=== PATIENT | female | born 1950 | race Caucasian/White ===

== ENCOUNTER 2019-09-27 10:39 | Day surgery (SDC) | payer MEDICARE, MEDICAID ==
[2019-09-24 13:19] LABS: BASOPHILS % (AUTO) 0.7 % (0-1); EOSINOPHILS # (AUTO) 0.1 X10'3 (0-0.9); EOSINOPHILS % (AUTO) 0.8 % (0-6); LYMPHOCYTES # (AUTO) 1.7 X10'3 (1.1-4.8); LYMPHOCYTES % (AUTO) 23.3 % (21-51); MEAN CORPUSCULAR HGB CONC 33.4 g/dL (33.0-36.5); MEAN PLATELET VOLUME 8.3 FL (7.4-10.4); MONOCYTES # (AUTO) 0.6 X10'3 (0-0.9); MONOCYTES % (AUTO) 8.8 % (2-12); NEUTROPHILS # (AUTO) 4.9 X10'3 (1.8-7.7); NEUTROPHILS % (AUTO) 66.4 % (42-75); PRE OP HEMATOCRIT 41.3 % (35.0-45.0); PRE OP HEMOGLOBIN 13.8 g/dL (12.0-16.0); PRE OP PLATELET COUNT 255 X10'3 (140-440)
[2019-09-24 13:24] LABS: ALBUMIN 4.1 G/DL (3.4-5.0); ALBUMIN/GLOBULIN RATIO 1.4 (1.1-1.5); ALKALINE PHOSPHATASE 53 IU/L (46-116); BLOOD UREA NITROGEN 16 MG/DL (7-18); BUN/CREATININE RATIO 19.3 (6.6-38.0); CALCIUM 8.9 MG/DL (8.5-10.1); CHLORIDE 110 MMOL/L (99-107); CREATININE 0.83 MG/DL (0.40-0.90); PRE OP ALT 16 U/L (30-65); PRE OP ANION GAP 7 (8-16); PRE OP AST 14 U/L (10-37); PRE OP BILIRUB, TOTAL 0.3 MG/DL (0.0-1.0); PRE OP GLUCOSE 73 MG/DL (70-104); PRE OP POTASSIUM 4.6 MMOL/L (3.4-5.1); PRE OP SODIUM 148 MMOL/L (135-145); TOTAL CARBON DIOXIDE 30.6 MMOL/L (24-32); eGFR 68 ML/MIN
[2019-09-27] VITALS (7 sets, daily range): BP systolic 132–150; BP diastolic 70–79
[~2019-09-27] VITALS: Ht 167.6 cm; Wt 44.9 kg
[~2019-09-27 10:39] MED LIST: ACET-1025 PO; ALB0.5UD IH; FLUT1DIS INH; MONT10TA21 PO; SERT25TA PO; TIOT18CA3 INH; cefazolin/dext.iso 2gm/50ml 50 ML IV ONE; famotidine 20mg tablet PO ONE; ringers solution, lacted 1,000 ML IV SCH
[2019-09-27] MEDS ORDERED: MELA10TA PO (12:16)
[2019-09-27] MEDS ORDERED: TRAZ-256 PO (12:16)
[2019-09-27] MEDS ORDERED: QUET25TA PO (12:16)
[2019-09-27] MEDS ORDERED: ringers solution, lacted 1,000 ML IV SCH ×2 (14:03→18:36)
[2019-09-27] MEDS ORDERED: morphine 2 MG/ML inj. syringe IV PRN ×2 (14:05→18:40)
[2019-09-27] MEDS ORDERED: proCHLORperazine 10 MG/2 ml inj IV PRN (14:05)
[2019-09-27] MEDS ORDERED: morphine 4 MG/ML inj SYRINge IV PRN ×2 (14:05→18:40)
[2019-09-27] MEDS ORDERED: meperidine/PF 25mg/ml syringe IV PRN (14:05)
[2019-09-27] MEDS ORDERED: HYDROmorphone inj. 0.5 MG/0.5 ML DISP.SYRIN IV PRN ×2 (14:05)
[2019-09-27] MEDS ORDERED: ondansetron/PF 4mg/2ml inj IV PRN ×2 (14:05→18:40)
[2019-09-27] MEDS ORDERED: BUPIVAcaine/PF 2.5mg/ml (0.25%) 10ml vial ONE ×2 (17:30→17:33)
[2019-09-27] MEDS ORDERED: LIDOcaine 1% w/epiNEPHrine 1:200,000 30ml vial ONE (17:31)
[2019-09-27] MEDS ORDERED: BUPIVACAINE liposomal/PF 13.3 MG/ML vial IM ONE (17:33)
[2019-09-27] MEDS ORDERED: fentaNYL/PF 50MCG/1 ML 2ML syringe ONE ×2 (17:41→17:42)
[2019-09-27] MEDS ORDERED: midazolam 2 mg/2 ml injection ONE (17:42)
[2019-09-27] MEDS ORDERED: dexamethasone sod phosphate 10mg/ml inj ONE (17:44)
[2019-09-27] MEDS ORDERED: neostigmine methylsulfate 1 MG/ML 10ml vial ONE (17:44)
[2019-09-27] MEDS ORDERED: ondansetron/PF 4mg/2ml inj ONE (17:44)
[2019-09-27] MEDS ORDERED: sevoflurane 250ml liquid IH ONE (17:44)
[2019-09-27] MEDS ORDERED: rocuronium 10mg/ml inj IV ONE (17:44)
[2019-09-27] MEDS ORDERED: LIDOcaine 1% 30ml preserv. free vial ONE (17:48)
[2019-09-27] MEDS ORDERED: LIDOcaine 2% (20mg/ml) 5ml vial ONE (17:56)
[2019-09-27] MEDS ORDERED: propofol inj 20 ML IV ONE (17:56)
[2019-09-27] MEDS ORDERED: labetalol 20mg/4ml (5mg/ml) syringe IV ONE (18:09)
[2019-09-27] MEDS ORDERED: hydrALAZINE 20mg/ml inj. IV PRN (18:40)
[2019-09-27] MEDS ORDERED: fentaNYL/PF 50MCG/1 ML 2ML syringe IV PRN ×2 (18:40)
[2019-09-27] MEDS ORDERED: labetalol 20mg/4ml (5mg/ml) syringe IV PRN (18:40)
[2019-09-27] MEDS ORDERED: glycopyrrolate 0.2mg/ml inj ONE (18:51)
[2019-09-27] MEDS ORDERED: HYDROcodone/acetaminophen 5mg/325mg tablet PO PRN ×2 (19:15)
--- NOTE | 2019-09-27 19:15 | NUR ---
Received from OR via BED , accompanied by Anesthesiologist DR DESAI and report given by Anesthesiolgist. PATIENT WAKING UP, DENIES PAIN, V/S WNL, NEUROVASCULAR CHECKS INTACT, 20G PIV RUE, SCD ON, BANDAIDS TO LAP SIGHTS OF ABDOMEN CDI.
--- NOTE | 2019-09-27 19:55 | NUR ---
PATIENT A&OX4, DENIES PAIN, V/S WNL, NEUROVASCULAR CHECKS INTACT, 20G PIV RUE D/C, SCD OFF, BANDAIDS TO LAP SIGHTS OF ABDOMEN CDI.. I HAVE REVIEWED D/C INSTRUCTIONS AND GIVEN SCRIPT TO PATIENT FOR PAIN WITH PATIENT AND FAMILY HAVE VERBALIZED UNDERSTANDING.PATIENT WAS D/C HOME WITH ALL BELONGINGS AND FAMILY GAVE TRANSPORT HOME.
== END 2019-09-27 19:55 | disposition home or self-care (01) ==
LOC: PAS 10:39
PROVIDERS: ATTEND Surgery
DX: K40.20 Bilateral inguinal hernia, without obstruction or gangrene, not specified as recurrent (principal); K41.90 Unilateral femoral hernia, without obstruction or gangrene, not specified as recurrent; F32.9 Major depressive disorder, single episode, unspecified; F41.9 Anxiety disorder, unspecified; J43.9 Emphysema, unspecified; G43.909 Migraine, unspecified, not intractable, without status migrainosus; M19.90 Unspecified osteoarthritis, unspecified site; Z87.891 Personal history of nicotine dependence; Z88.1 Allergy status to other antibiotic agents; Z79.899 Other long term (current) drug therapy; Z98.890 Other specified postprocedural states; Z72.89 Other problems related to lifestyle; Z91.018 Allergy to other foods
CPT/HCPCS: 36415; 49650; 49659; 80053; 82948; 85025; 93005; C1781; C9290; J1100; J2001; J2250; J2405; J2704; J2710; J3010; J3490; J7120; A4215; A4618